=== PATIENT | female | born 1950 | race African-American/Black ===

== ENCOUNTER 2016-09-06 21:07 | Emergency (ER) | payer MEDICARE, OTHER ==
[2016-09-06 21:25] VITALS: BP 194/100
--- NOTE | 2016-09-07 09:34 | XRay Report ---
Unilateral left ribs: History: Rib pain after fall. Findings: Generalized demineralization. There is fracture of left fifth and sixth rib posteriorly. Old fracture of the left seventh rib. Multiple old fractures right ribs. Impression: Acute fracture left fifth and sixth rib.
--- NOTE | 2016-09-09 19:34 | ED Elopement Review ---
ED Pt Elopement review - Call Back decision Pt Call Back Decision: Call pt to return to ED [facility] (acute left sided rib fractures)
== END 2016-09-06 23:10 | disposition left against medical advice (07) ==
LOC: ED 21:07
DX: R07.81 Pleurodynia (principal); Z53.21 Procedure and treatment not carried out due to patient leaving prior to being seen by health care provider

== ENCOUNTER 2017-11-14 17:38 | Inpatient (IN) | payer MEDICARE, OTHER ==
[2017-11-14 18:46] LABS: Bilirubin,Urine NEG (Negative); Blood,Urine NEG (Negative); Mucus,Urine FEW /HPF; Protein,Urine <15 mg/dL mg/dL (Negative)
[2017-11-14 18:51] LABS: Color,Urine Amber (Yellow)
[2017-11-14 18:53] LABS: Basophils # (Auto) 0.1 K/mm3 (0.0-0.1); Basophils % (Auto) 1.1 % (0.0-1.8); Eosinophils # (Auto) 0.1 K/mm3 (0.0-0.4); Eosinophils % (Auto) 2.3 % (0.0-4.3); Hematocrit 40.4 % (30.3-42.9); Hemoglobin 13.1 gm/dl (10.1-14.3); Lymphocytes # (Auto) 2.7 K/mm3 (1.2-5.4); Lymphocytes % (Auto) 42.8 % (13.4-35.0); Mean Corpuscular HGB Conc 32 % (30-34); Mean Corpuscular Hemoglobin 31 pg (28-32); Mean Corpuscular Volume 96 fl (79-97); Monocytes # (Auto) 0.5 K/mm3 (0.0-0.8); Monocytes % (Auto) 7.9 % (0.0-7.3); Platelet Count 369 K/mm3 (140-440); Red Blood Count 4.22 M/mm3 (3.65-5.03); Red Cell Distribution Width 14.2 % (13.2-15.2)
[2017-11-14 19:12] LABS: Alanine Aminotransferase 6 units/L (7-56); Albumin 4.7 g/dL (3.9-5); BUN/Creatinine Ratio 41; Blood Urea Nitrogen 29 mg/dL (7-17); Calcium 8.8 mg/dL (8.4-10.2); Hemolysis Index 20
--- NOTE | 2017-11-14 22:38 | Emergency Department Report ---
ED Abdominal Pain HPI - General Chief Complaint: Abdominal Pain Stated Complaint: LOW BACK PAIN Time Seen by Provider: 11/14/17 22:38 Source: patient, family Mode of arrival: Ambulatory Limitations: No Limitations - History of Present Illness MD Complaint: abdominal pain, flank pain -: Sudden, Last night Location: L flank Radiation: none Migration to: no migration Severity: moderate Severity scale (0 -10): 6 Quality: sharp Consistency: constant Improves With: nothing Worsens With: nothing Associated Symptoms: denies other symptoms - Related Data Home Medications Medication Instructions Recorded Confirmed Last Taken Carbidopa/Levodopa/Entacapone 1 mg PO TID 08/10/14 08/10/14 Unknown [Stalevo 50 Tablet] Escitalopram Oxalate [Lexapro] 20 mg PO DAILY 08/10/14 08/10/14 Unknown HYDROcodone/APAP 10-325 [[place] 1 tab PO BID 08/10/14 08/10/14 Unknown 10-325 mg TAB] Quetiapine Fumarate [SEROquel XR] 50 mg PO DAILY 08/10/14 08/10/14 Unknown Rasagiline Mesylate [Azilect] 1 mg PO DAILY 08/10/14 08/10/14 Unknown Tizanidine HCl [Zanaflex] 4 mg PO DAILY 08/10/14 08/10/14 Unknown Zonisamide (Nf) [Zonegran (Nf)] 100 mg PO BID 08/10/14 08/10/14 Unknown clonazePAM [KlonoPIN] 1 mg PO BID 08/10/14 08/10/14 Unknown Previous Rx's Medication Instructions Recorded Last Taken Type Losartan [Cozaar] 100 mg PO QDAY #30 tablet 08/11/14 Unknown Rx Allergies Allergy/AdvReac Type Severity Reaction Status Date / Time Penicillins AdvReac Intermediate Swelling Verified 12/15/13 12:35 ED Review of Systems ROS: Stated complaint: LOW BACK PAIN Other details as noted in HPI Comment: All other systems reviewed and negative Constitutional: denies: chills, fever Eyes: denies: vision change ENT: denies: ear pain Respiratory: denies: cough, orthopnea, shortness of breath Cardiovascular: denies: chest pain, palpitations, dyspnea on exertion Endocrine: no symptoms reported Gastrointestinal: abdominal pain. denies: nausea, vomiting, diarrhea Genitourinary: denies: urgency, dysuria, frequency Musculoskeletal: denies: back pain, joint swelling Skin: denies: rash, lesions, change in color Neurological: denies: headache, numbness, paresthesias Psychiatric: denies: anxiety Hematological/Lymphatic: denies: easy bleeding, easy bruising ED Past Medical Hx - Past Medical History Hx Hypertension: Yes Hx Renal Disease: (kidney stones) Hx Arthritis: Yes Hx Kidney Stones: Yes Hx Psychiatric Treatment: Yes (Bipolar and Anxiety) Hx Asthma: Yes Additional medical history: hx kidney stones, parkinsons disease. - Surgical History Additional Surgical History: knee surgery - Social History Smoking Status: Never Smoker Substance Use Type: None - Medications Home Medications: Home Medications Medication Instructions Recorded Confirmed Last Taken Type Carbidopa/Levodopa/Entacapone 1 mg PO TID 08/10/14 08/10/14 Unknown History [Stalevo 50 Tablet] Escitalopram Oxalate [Lexapro] 20 mg PO DAILY 08/10/14 08/10/14 Unknown History HYDROcodone/APAP 10-325 [[place] 1 tab PO BID 08/10/14 08/10/14 Unknown History 10-325 mg TAB] Quetiapine Fumarate [SEROquel XR] 50 mg PO DAILY 08/10/14 08/10/14 Unknown History Rasagiline Mesylate [Azilect] 1 mg PO DAILY 08/10/14 08/10/14 Unknown History Tizanidine HCl [Zanaflex] 4 mg PO DAILY 08/10/14 08/10/14 Unknown History Zonisamide (Nf) [Zonegran (Nf)] 100 mg PO BID 08/10/14 08/10/14 Unknown History clonazePAM [KlonoPIN] 1 mg PO BID 08/10/14 08/10/14 Unknown History Losartan [Cozaar] 100 mg PO QDAY #30 tablet 08/11/14 Unknown Rx ED Physical Exam - General Limitations: No Limitations General appearance: alert, in distress - Head Head exam: Present: atraumatic, normocephalic, normal inspection - Eye Eye exam: Present: normal appearance, PERRL, EOMI Pupils: Present: normal accommodation - ENT ENT exam: Present: normal exam, normal orophraynx, mucous membranes moist - Neck Neck exam: Present: normal inspection, full ROM. Absent: tenderness - Respiratory Respiratory exam: Present: normal lung sounds bilaterally. Absent: wheezes, rhonchi - Cardiovascular Cardiovascular Exam: Present: regular rate, normal rhythm, normal heart sounds - GI/Abdominal GI/Abdominal exam: Present: soft, tenderness, guarding, normal bowel sounds. Absent: distended, rebound, mass - Extremities Exam Extremities exam: Present: normal inspection, full ROM, normal capillary refill. Absent: tenderness - Back Exam Back exam: Present: normal inspection, full ROM. Absent: tenderness, vertebral tenderness - Neurological Exam Neurological exam: Present: alert, oriented X3, CN II-XII intact - Psychiatric Psychiatric exam: Present: normal affect, normal mood, flat affect - Skin Skin exam: Present: warm, dry, intact, normal color. Absent: rash ED Course Vital Signs 11/14/17 17:52 Temperature 97.8 F Pulse Rate 88 Respiratory 16 Rate Blood Pressure 123/70 O2 Sat by Pulse 98 Oximetry - Reevaluation(s) Reevaluation #1: 11/15/17 05:15 I discussed medicine care with hospitalist slot key person Dr Beba Verma. She'll admit the patient to the hospital for further evaluation and management. ED Medical Decision Making - Lab Data Result diagrams: 11/14/17 18:21 11/14/17 18:21 - Radiology Data Radiology results: report reviewed, image reviewed - Medical Decision Making Abdominal pain. Critical care attestation.: If time is entered above; I have spent that time in minutes in the direct care of this critically ill patient, excluding procedure time. ED Disposition Clinical Impression: Intraabdominal mass Abdominal pain Qualifiers: Abdominal location: left upper quadrant Qualified Code(s): R10.12 - Left upper quadrant pain Disposition: -09 OP ADMIT IP TO THIS HOSP Is pt being admited?: Yes Does the pt Need Aspirin: No Condition: Stable Instructions: Abdominal Pain (ED) Referrals: PRIMARY CARE, [Primary Care Provider] - 3-5 Days Time of Disposition: 05:15
[2017-11-14] MEDS ORDERED: PERCOCET 5/325 PO ONE (22:53)
[2017-11-15 00:14] LABS: INR 0.89 (0.87-1.13)
[2017-11-15 00:15] LABS: Partial Thromboplastin Time 31.7 Sec. (24.2-36.6)
--- NOTE | 2017-11-15 08:28 | History and Physical Report ---
History of Present Illness Date of examination: 11/15/17 Date of admission: 11/15/17 07:00 Chief complaint: Left flank pain History of present illness: This is a 67 y/o female with h/o recurrent kidney stone, parkinson disease, HTN, bipolar disorder presented with 2-3 days onset of left lumber pain which has been progressively getting worse. Patient stats that it felt like similar pattern of having kidney stone. Pain located on the LUQ ad radiate through the groin area. Pain ea initially intermittent then became persistent along with nausea and vomitting. In the ER CT abdomen/pelvis showed possible LUQ mass likely from stomach or adrenal gland. Patient being admitted for further evaluation and management. She denies any recent Wt loss, lack of appetite. Past medical History: h/o ecurrent kidney stone, parkinson disease, HTN, bipolardisorde Past surgical History: s/p kidney stone removal, knee surgery Social History: Lives with family, denies any smoking, drinking and elicit drug abuse. Family History: NO Significant h/o malignancy Review of System: Constitutional: no fever, no chills, no weight loss Ears, eyes, nose, mouth and throat: no nasal congestion, no nasal discharge, no sinus pressure, no vision change, no red eye. Neck: No neck pain or rigidity. Cardiovascular: No chest pain, no orthopnea, no palpitations, no leg swelling Respiratory: No shortness of breath, no cough, no congestion, no wheezing Gastrointestinal: + abdominal pain, + nausea, + vomiting Genitourinary : no dysuria, no hematuria Musculoskeletal: no joint swelling or muscle ache Integumentary: no rash, no pruritis Neurological: no parathesias, no numbness, no tingling Endocrine: no cold or heat intolerance, no polyuria or polydipsia Hematologic/Lymphatic: no easy bruising, no easy bleeding, no gland swelling Allergic/Immunologic: no urticaria, no angioedema. Medications and Allergies Allergies Allergy/AdvReac Type Severity Reaction Status Date / Time Penicillins AdvReac Intermediate Swelling Verified 12/15/13 12:35 Home Medications Medication Instructions Recorded Confirmed Last Taken Type Escitalopram Oxalate [Lexapro] 20 mg PO DAILY 08/10/14 11/15/17 11/14/17 08:00 History HYDROcodone/APAP 10-325 [[place] 1 tab PO BID 08/10/14 11/15/1718 08:00 History 10-325 mg TAB] Quetiapine Fumarate [SEROquel XR] 150 mg PO HS 08/10/14 11/15/17 11/13/17 21:00 History Zonisamide (Nf) [Zonegran (Nf)] 100 mg PO BID 08/10/14 11/15/17 11/14/17 08:00 History clonazePAM [KlonoPIN] 0.5 mg PO BID 08/10/14 11/15/17 11/14/17 08:00 History Sfepyyzsp-Iszskobl-Xlnk 50 mg 50 mg PO QID 11/15/17 11/15/17 11/14/17 08:00 History Exam - Physical Exam Narrative exam: GENERAL: well-developed elderly female lying on bed appeared to be in no discomfort. HEENT: Normocephalic. Atraumatic. No conjunctival congestion or icterus. Patient has moist mucous membranes. NECK: Supple. Trachea midline. CHEST/LUNGS: Clear to auscultated bilaterally, breathing nonlabored. No wheezes crackles or rhonchi. HEART/CARDIOVASCULAR: Regular in rate and rhythm. S1 and S2 positive. ABDOMEN: Abdomen is soft, left sided mild tenderness. Patient has normal bowel sounds. SKIN: There is no rash. Warm and dry. NEURO: No focal motor deficit. Follows command. MUSCULOSKELETAL: No joint effusion or tenderness. EXTRIMITY: No edema, no cyanosis or clubbing. PSYCH: Cooperative. - Constitutional Vitals: Temp Pulse Resp BP Pulse Ox 98.1 F 79 16 149/99 96 11/15/17 06:45 11/15/17 06:45 11/15/17 06:45 11/15/17 06:45 11/15/17 06:45 Results - Labs CBC & Chem 7: 11/14/17 18:21 11/14/17 18:21 Labs: Abnormal lab results 11/14/17 11/14/17 Range/Units 18:21 18:21 Lymph % (Auto) 42.8 H (13.4-35.0) % [place] % (Auto) 7.9 H (0.0-7.3) % BUN 29 H (7-17) mg/dL ALT 6 L (7-56) units/L - Imaging and Cardiology CT scan - abdomen: report reviewed Assessment and Plan Left upper quadrant intra-abdominal mass Left flank pain, likely due to LUQ mass Parkinson disease Bipolar disorder/Anxiety HTN, benign - Admit to medsurge unit - will obtain MRI abdomen/pelvis to better locate the intraabdominal mass - gentle hydration with iv fluid - resume outpt medication for Parkinson disease and bipolar disorder - cont losartan for HTN - Supportive care with iv morphin and zofran for as needed pain and nausea - cardiac diet as tolerated - DVT Px with lovenox
[2017-11-15] MEDS ORDERED: NARCAN 0.4 MG/1 ML IV PRN (08:29)
[2017-11-15] MEDS ORDERED: ZOFRAN IV PRN (08:29)
[2017-11-15] MEDS ORDERED: TYLENOL PO PRN (08:29)
[2017-11-15] MEDS ORDERED: MORPHINE IV PRN (08:29)
[2017-11-15] MEDS ORDERED: SODIUM CHLORIDE FLUSH SYRINGE 10 ML IV PRN (08:29)
[2017-11-15] MEDS ORDERED: NACL 0.9% 1000 ML 1,000 ML IV SCH (09:00)
[2017-11-15] MEDS ORDERED: NON-FORMULARY (Quetiapine Fumarate [Seroquel Xr] 50 MG) PO SCH ×2 (10:00→22:00)
[2017-11-15] MEDS ORDERED: NON-FORMULARY (Escitalopram Oxalate [Lexapro] 20 MG) PO SCH (10:00)
[2017-11-15] MEDS ORDERED: NON-FORMULARY (Clonazepam [Klonopin] 1 MG) PO SCH (10:00)
[2017-11-15] MEDS: LEXAPRO PO SCH (11:57)
[2017-11-15] MEDS: PEPCID PO SCH ×2 (11:58→22:14)
[2017-11-15] MEDS: COZAAR PO SCH (11:58)
[2017-11-15] MEDS: LOVENOX SUB-Q SCH (11:59)
[2017-11-15] MEDS: COLACE PO SCH ×2 (11:59→22:14)
[2017-11-15] MEDS: SODIUM CHLORIDE FLUSH SYRINGE 10 ML IV SCH ×2 (12:00→22:16)
[2017-11-15] MEDS ORDERED: ENTACAPONE PO SCH (14:00)
[2017-11-15] MEDS ORDERED: CARBIDOPA PO SCH (14:00)
[2017-11-15] MEDS ORDERED: LEVODOPA PO SCH (14:00)
[2017-11-15] MEDS ORDERED: NON-FORMULARY PO SCH (18:00)
[2017-11-15] MEDS: NON-FORMULARY PO SCH (21:02)
[2017-11-15] MEDS ORDERED: NON-FORMULARY (Quetiapine Fumarate [Seroquel Xr] 150 MG) PO SCH (22:00)
[2017-11-16] MEDS: NON-FORMULARY PO SCH ×4 (07:49→22:15)
[2017-11-16] MEDS ORDERED: ATIVAN IV NR (08:30)
[2017-11-16] MEDS: COLACE PO SCH ×2 (09:27→23:03)
[2017-11-16] MEDS: PEPCID PO SCH ×2 (09:27→23:03)
[2017-11-16] MEDS: LOVENOX SUB-Q SCH (09:28)
[2017-11-16] MEDS: LEXAPRO PO SCH (09:28)
[2017-11-16] MEDS: COZAAR PO SCH (09:28)
[2017-11-16] MEDS: SODIUM CHLORIDE FLUSH SYRINGE 10 ML IV SCH ×2 (09:29→23:05)
[2017-11-16] MEDS ORDERED: PNEUMOVAX 23 IM ONE (12:00)
[2017-11-16] MEDS ORDERED: CARBIDOPA LEVODOPA ENTA PO SCH (18:00)
--- NOTE | 2017-11-16 18:36 | Progress Note ---
Assessment and Plan Left upper quadrant intra-abdominal mass Left flank pain, likely due to LUQ mass Parkinson disease Bipolar disorder/Anxiety HTN, benign - cont to monitor at medsurge unit - pending MRI abdomen/pelvis to better locate the intraabdominal mass - cont gentle hydration with iv fluid - resumed outpt medication for Parkinson disease and bipolar disorder - cont losartan for HTN - Supportive care with iv morphin and zofran for as needed pain and nausea - cardiac diet as tolerated - DVT Px with lovenox Subjective Date of service: 11/16/17 Interval history: Pt seen and examined [employer] acute issue, updated at bedside Plan to have MRI today Objective - Exam Narrative Exam: GENERAL: well-developed elderly female lying on bed appeared to be in no discomfort. HEENT: Normocephalic. Atraumatic. No conjunctival congestion or icterus. Patient has moist mucous membranes. NECK: Supple. Trachea midline. CHEST/LUNGS: Clear to auscultated bilaterally, breathing nonlabored. No wheezes crackles or rhonchi. HEART/CARDIOVASCULAR: Regular in rate and rhythm. S1 and S2 positive. ABDOMEN: Abdomen is soft, left sided mild tenderness. Patient has normal bowel sounds. SKIN: There is no rash. Warm and dry. NEURO: No focal motor deficit. Follows command. MUSCULOSKELETAL: No joint effusion or tenderness. EXTRIMITY: No edema, no cyanosis or clubbing. PSYCH: Cooperative. - Constitutional Vitals: Vital Signs - 12hr 11/16/17 11/16/17 11/16/17 08:03 09:28 10:00 Temperature 98.5 F Pulse Rate 72 74 Pulse Rate [ 74 Right] Respiratory 20 16 Rate Blood Pressure 146/90 150/95 O2 Sat by Pulse 99 98 Oximetry 11/16/17 12:49 Temperature 97.8 F Pulse Rate 81 Pulse Rate [ Right] Respiratory 20 Rate Blood Pressure 152/82 O2 Sat by Pulse 99 Oximetry - Labs CBC & Chem 7: 11/14/17 18:21 11/14/17 18:21
[2017-11-16] MEDS ORDERED: ZONISAMIDE 100 MG PO SCH (22:00)
[2017-11-17] MEDS: NON-FORMULARY PO SCH ×5 (00:15→21:38)
--- NOTE | 2017-11-17 07:53 | Progress Note ---
Assessment and Plan Assessment and plan: --Left upper quadrant intra-abdominal mass Continue supportive care, following MRI abdomen Consider surgical consult if needed --Left flank pain, likely due to LUQ mass Supportive care, pain medications, follow MRI report --Parkinson disease; Continue current medications and management --Bipolar disorder/Anxiety Intercurrent psych medications --Hypertension; moderate control, continue current antihypertensives When necessary medications --DVT prophylaxis; with Lovenox Monitor the patient and adjust management as needed Plan of care reviewed with the patient's at the bedside As well as her nurse History Interval history: Patient seen and examined medical records reviewed No new events reported by the nursing Patient had an MRI abdomen done, pending report No new complaints Vital signs reviewed Hospitalist Physical - Constitutional Vitals: Temp Pulse Resp BP Pulse Ox 98.4 F 83 18 128/82 97 11/17/17 02:23 11/17/17 02:23 11/17/17 02:23 11/17/17 02:23 11/17/17 02:23 General appearance: Present: no acute distress, well-nourished - EENT Eyes: Present: PERRL, EOM intact - Neck Neck: Present: supple, normal ROM - Respiratory Respiratory effort: normal Respiratory: bilateral: diminished, negative: rales, rhonchi, wheezing - Cardiovascular Rhythm: regular Heart Sounds: Present: S1 & S2 - Extremities Extremities: no ischemia, No edema - Abdominal General gastrointestinal: soft, non-tender, non-distended, normal bowel sounds - Integumentary Integumentary: Present: clear, warm - Psychiatric Psychiatric: appropriate mood/affect, cooperative - Neurologic Neurologic: CNII-XII intact, moves all extremities Results - Labs CBC & Chem 7: 11/14/17 18:21 11/14/17 18:21 Labs: Laboratory Last Values WBC 6.2 K/mm3 (4.5-11.0) 11/14/17 18:21 RBC 4.22 M/mm3 (3.65-5.03) 11/14/17 18:21 Hgb 13.1 gm/dl (10.1-14.3) 11/14/17 18:21 Hct 40.4 % (30.3-42.9) 11/14/17 18:21 MCV 96 fl (79-97) 11/14/17 18:21 MCH 31 pg (28-32) 11/14/17 18:21 MCHC 32 % (30-34) 11/14/17 18:21 RDW 14.2 % (13.2-15.2) 11/14/17 18:21 Plt Count 369 K/mm3 (140-440) 11/14/17 18:21 Lymph % (Auto) 42.8 % (13.4-35.0) H 11/14/17 18:21 [place] % (Auto) 7.9 % (0.0-7.3) H 11/14/17 18:21 Eos % (Auto) 2.3 % (0.0-4.3) 11/14/17 18:21 Baso % (Auto) 1.1 % (0.0-1.8) 11/14/17 18:21 Lymph # 2.7 K/mm3 (1.2-5.4) 11/14/17 18:21 [place] # 0.5 K/mm3 (0.0-0.8) 11/14/17 18:21 Eos # 0.1 K/mm3 (0.0-0.4) 11/14/17 18:21 Baso # 0.1 K/mm3 (0.0-0.1) 11/14/17 18:21 Seg Neutrophils % 45.9 % (40.0-70.0) 11/14/17 18:21 Seg Neutrophils # 2.9 K/mm3 (1.8-7.7) 11/14/17 18:21 PT 12.5 Sec. (12.2-14.9) 11/14/17 23:49 INR 0.89 (0.87-1.13) 11/14/17 23:49 APTT 31.7 Sec. (24.2-36.6) 11/14/17 23:49 Sodium 141 mmol/L (137-145) 11/14/17 18:21 Potassium 4.3 mmol/L (3.6-5.0) 11/14/17 18:21 Chloride 104.0 mmol/L (98-107) 11/14/17 18:21 Carbon Dioxide 22 mmol/L (22-30) 11/14/17 18:21 Anion Gap 19 mmol/L 11/14/17 18:21 BUN 29 mg/dL (7-17) H 11/14/17 18:21 Creatinine 0.7 mg/dL (0.7-1.2) 11/14/17 18:21 Estimated GFR > 60 ml/min 11/14/17 18:21 BUN/Creatinine Ratio 41 % 11/14/17 18:21 Glucose 94 mg/dL (65-100) 11/14/17 18:21 Calcium 8.8 mg/dL (8.4-10.2) 11/14/17 18:21 Total Bilirubin 0.20 mg/dL (0.1-1.2) 11/14/17 18:21 AST 14 units/L (5-40) 11/14/17 18:21 ALT 6 units/L (7-56) L 11/14/17 18:21 Alkaline Phosphatase 111 units/L (35-129) 11/14/17 18:21 Total Protein 7.3 g/dL (6.3-8.2) 11/14/17 18:21 Albumin 4.7 g/dL (3.9-5) 11/14/17 18:21 Albumin/Globulin Ratio 1.8 % 11/14/17 18:21 Lipase 46 units/L (13-60) 11/14/17 23:49 Urine Color Jewels (Yellow) 11/14/17 18:24 Urine Turbidity Clear (Clear) 11/14/17 18:24 Urine pH 6.0 (5.0-7.0) 11/14/17 18:24 Ur Specific [place] 1.025 (1.003-1.030) 11/14/17 18:24 Urine Protein <15 mg/dl mg/dL (Negative) 11/14/17 18:24 Urine Glucose (UA) Neg mg/dL (Negative) 11/14/17 18:24 Urine Ketones Neg mg/dL (Negative) 11/14/17 18:24 Urine Blood Neg (Negative) 11/14/17 18:24 Urine Nitrite Neg (Negative) 11/14/17 18:24 Urine Bilirubin Neg (Negative) 11/14/17 18:24 Urine Urobilinogen 2.0 mg/dL (<2.0) 11/14/17 18:24 Ur Leukocyte Esterase Lg (Negative) 11/14/17 18:24 Urine WBC (Auto) 6.0 /HPF (0.0-6.0) 11/14/17 18:24 Urine RBC (Auto) 6.0 /HPF (0.0-6.0) 11/14/17 18:24 U Epithel Cells (Auto) 2.0 /HPF (0-13.0) 11/14/17 18:24 Urine Mucus Few /HPF 11/14/17 18:24
[2017-11-17] MEDS: LEXAPRO PO SCH (10:13)
[2017-11-17] MEDS: PEPCID PO SCH ×2 (10:13→21:36)
[2017-11-17] MEDS: COLACE PO SCH ×2 (10:14→21:37)
[2017-11-17] MEDS: COZAAR PO SCH (10:14)
[2017-11-17] MEDS: PERCOCET 5/325 PO PRN ×2 (10:14→15:44)
[2017-11-17] MEDS: LOVENOX SUB-Q SCH (10:15)
[2017-11-17] MEDS: SODIUM CHLORIDE FLUSH SYRINGE 10 ML IV SCH ×2 (10:20→21:39)
[2017-11-18] MEDS: PERCOCET 5/325 PO PRN ×2 (04:00→21:57)
[2017-11-18] MEDS: NON-FORMULARY PO SCH ×4 (08:09→21:58)
[2017-11-18] MEDS: LOVENOX SUB-Q SCH (10:09)
[2017-11-18] MEDS: SODIUM CHLORIDE FLUSH SYRINGE 10 ML IV SCH ×2 (10:10→21:57)
[2017-11-18] MEDS: PEPCID PO SCH ×2 (10:10→21:58)
[2017-11-18] MEDS: LEXAPRO PO SCH (10:10)
[2017-11-18] MEDS: COLACE PO SCH ×2 (10:10→21:58)
[2017-11-18] MEDS: COZAAR PO SCH (10:12)
--- NOTE | 2017-11-18 13:00 | Progress Note ---
Assessment and Plan Assessment and plan: --Left upper quadrant intra-abdominal mass MRI abdomen. Report pending Supportive care --Left flank pain, likely due to LUQ mass Supportive care, pain medications, follow MRI report --Parkinson disease; Continue current medications and management --Bipolar disorder/Anxiety Continue current psych medications --Hypertension; moderate control, continue current antihypertensives When necessary medications --DVT prophylaxis; with Lovenox --DC planning per case management Possible discharge in 1-2 days if stable History Interval history: Patient seen and examined medical records reviewed No new events reported by nursing staff She underwent a MRI abdomen for possible mass Pending report Patient is not in acute distress vital signs reviewed Hospitalist Physical - Constitutional Vitals: Temp Pulse Resp BP Pulse Ox 97.9 F 84 16 125/67 99 11/18/17 07:24 11/18/17 10:12 11/18/17 07:24 11/18/17 10:12 11/18/17 07:24 General appearance: Present: no acute distress, well-nourished - EENT Eyes: Present: PERRL, EOM intact - Neck Neck: Present: supple, normal ROM - Respiratory Respiratory effort: normal Respiratory: bilateral: diminished, negative: rales, rhonchi, wheezing - Cardiovascular Rhythm: regular Heart Sounds: Present: S1 & S2 - Extremities Extremities: no ischemia, No edema - Abdominal General gastrointestinal: soft, non-tender, non-distended, normal bowel sounds - Integumentary Integumentary: Present: clear, warm - Psychiatric Psychiatric: appropriate mood/affect, cooperative - Neurologic Neurologic: moves all extremities Results - Labs CBC & Chem 7: 11/14/17 18:21 11/14/17 18:21 Labs: Laboratory Last Values WBC 6.2 K/mm3 (4.5-11.0) 11/14/17 18:21 RBC 4.22 M/mm3 (3.65-5.03) 11/14/17 18:21 Hgb 13.1 gm/dl (10.1-14.3) 11/14/17 18:21 Hct 40.4 % (30.3-42.9) 11/14/17 18:21 MCV 96 fl (79-97) 11/14/17 18:21 MCH 31 pg (28-32) 11/14/17 18:21 MCHC 32 % (30-34) 11/14/17 18:21 RDW 14.2 % (13.2-15.2) 11/14/17 18:21 Plt Count 369 K/mm3 (140-440) 11/14/17 18:21 Lymph % (Auto) 42.8 % (13.4-35.0) H 11/14/17 18:21 [place] % (Auto) 7.9 % (0.0-7.3) H 11/14/17 18:21 Eos % (Auto) 2.3 % (0.0-4.3) 11/14/17 18:21 Baso % (Auto) 1.1 % (0.0-1.8) 11/14/17 18:21 Lymph # 2.7 K/mm3 (1.2-5.4) 11/14/17 18:21 [place] # 0.5 K/mm3 (0.0-0.8) 11/14/17 18:21 Eos # 0.1 K/mm3 (0.0-0.4) 11/14/17 18:21 Baso # 0.1 K/mm3 (0.0-0.1) 11/14/17 18:21 Seg Neutrophils % 45.9 % (40.0-70.0) 11/14/17 18:21 Seg Neutrophils # 2.9 K/mm3 (1.8-7.7) 11/14/17 18:21 PT 12.5 Sec. (12.2-14.9) 11/14/17 23:49 INR 0.89 (0.87-1.13) 11/14/17 23:49 APTT 31.7 Sec. (24.2-36.6) 11/14/17 23:49 Sodium 141 mmol/L (137-145) 11/14/17 18:21 Potassium 4.3 mmol/L (3.6-5.0) 11/14/17 18:21 Chloride 104.0 mmol/L (98-107) 11/14/17 18:21 Carbon Dioxide 22 mmol/L (22-30) 11/14/17 18:21 Anion Gap 19 mmol/L 11/14/17 18:21 BUN 29 mg/dL (7-17) H 11/14/17 18:21 Creatinine 0.7 mg/dL (0.7-1.2) 11/14/17 18:21 Estimated GFR > 60 ml/min 11/14/17 18:21 BUN/Creatinine Ratio 41 % 11/14/17 18:21 Glucose 94 mg/dL (65-100) 11/14/17 18:21 Calcium 8.8 mg/dL (8.4-10.2) 11/14/17 18:21 Total Bilirubin 0.20 mg/dL (0.1-1.2) 11/14/17 18:21 AST 14 units/L (5-40) 11/14/17 18:21 ALT 6 units/L (7-56) L 11/14/17 18:21 Alkaline Phosphatase 111 units/L (35-129) 11/14/17 18:21 Total Protein 7.3 g/dL (6.3-8.2) 11/14/17 18:21 Albumin 4.7 g/dL (3.9-5) 11/14/17 18:21 Albumin/Globulin Ratio 1.8 % 11/14/17 18:21 Lipase 46 units/L (13-60) 11/14/17 23:49 Urine Color [place] (Yellow) 11/14/17 18:24 Urine Turbidity Clear (Clear) 11/14/17 18:24 Urine pH 6.0 (5.0-7.0) 11/14/17 18:24 Ur Specific [place] 1.025 (1.003-1.030) 11/14/17 18:24 Urine Protein <15 mg/dl mg/dL (Negative) 11/14/17 18:24 Urine Glucose (UA) Neg mg/dL (Negative) 11/14/17 18:24 Urine Ketones Neg mg/dL (Negative) 11/14/17 18:24 Urine Blood Neg (Negative) 11/14/17 18:24 Urine Nitrite Neg (Negative) 11/14/17 18:24 Urine Bilirubin Neg (Negative) 11/14/17 18:24 Urine Urobilinogen 2.0 mg/dL (<2.0) 11/14/17 18:24 Ur Leukocyte Esterase Lg (Negative) 11/14/17 18:24 Urine WBC (Auto) 6.0 /HPF (0.0-6.0) 11/14/17 18:24 Urine RBC (Auto) 6.0 /HPF (0.0-6.0) 11/14/17 18:24 U Epithel Cells (Auto) 2.0 /HPF (0-13.0) 11/14/17 18:24 Urine Mucus Few /HPF 11/14/17 18:24
[2017-11-19] MEDS: PERCOCET 5/325 PO PRN ×2 (04:44→12:09)
--- NOTE | 2017-11-19 07:57 | Progress Note ---
Assessment and Plan Assessment and plan: --Left upper quadrant intra-abdominal mass MRI abdomen. Discussed with radiologist Dr. 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 Request GI consult --Left flank pain, likely due to gastrointestinal stromal tumor Supportive care, pain medications, follow MRI report --Parkinson disease; Continue current medications and management --Bipolar disorder/Anxiety Continue current psych medications --Hypertension; moderate control, continue current antihypertensives When necessary medications --DVT prophylaxis; with Lovenox --DC planning per case management Follow GI evaluation and recommendations Possible discharge in 1-2 days if stable History Interval history: Patient seen and examined medical records reviewed Patient complains of mild abdominal pain MRI of the abdomen findings consistent with small gastrointestinal stromal tumor We will consult GI for further evaluation and management Patient alert and awake not in acute distress Vital signs reviewed Hospitalist Physical - Constitutional Vitals: Temp Pulse Resp BP Pulse Ox 98.7 F 84 18 134/70 94 11/19/17 02:04 11/18/17 19:41 11/19/17 02:04 11/19/17 02:04 11/18/17 19:41 General appearance: Present: no acute distress, well-nourished - EENT Eyes: Present: PERRL, EOM intact - Neck Neck: Present: supple, normal ROM - Respiratory Respiratory effort: normal Respiratory: bilateral: diminished, negative: rales, rhonchi, wheezing - Cardiovascular Rhythm: regular Heart Sounds: Present: S1 & S2 - Extremities Extremities: no ischemia, No edema - Abdominal General gastrointestinal: soft, non-tender, non-distended, normal bowel sounds - Integumentary Integumentary: Present: clear, warm - Psychiatric Psychiatric: appropriate mood/affect, cooperative - Neurologic Neurologic: CNII-XII intact, moves all extremities Results - Labs CBC & Chem 7: 11/14/17 18:21 11/14/17 18:21 Labs: Laboratory Last Values WBC 6.2 K/mm3 (4.5-11.0) 11/14/17 18:21 RBC 4.22 M/mm3 (3.65-5.03) 11/14/17 18:21 Hgb 13.1 gm/dl (10.1-14.3) 11/14/17 18:21 Hct 40.4 % (30.3-42.9) 11/14/17 18:21 MCV 96 fl (79-97) 11/14/17 18:21 MCH 31 pg (28-32) 11/14/17 18:21 MCHC 32 % (30-34) 11/14/17 18:21 RDW 14.2 % (13.2-15.2) 11/14/17 18:21 Plt Count 369 K/mm3 (140-440) 11/14/17 18:21 Lymph % (Auto) 42.8 % (13.4-35.0) H 11/14/17 18:21 [place] % (Auto) 7.9 % (0.0-7.3) H 11/14/17 18:21 Eos % (Auto) 2.3 % (0.0-4.3) 11/14/17 18:21 Baso % (Auto) 1.1 % (0.0-1.8) 11/14/17 18:21 Lymph # 2.7 K/mm3 (1.2-5.4) 11/14/17 18:21 [place] # 0.5 K/mm3 (0.0-0.8) 11/14/17 18:21 Eos # 0.1 K/mm3 (0.0-0.4) 11/14/17 18:21 Baso # 0.1 K/mm3 (0.0-0.1) 11/14/17 18:21 Seg Neutrophils % 45.9 % (40.0-70.0) 11/14/17 18:21 Seg Neutrophils # 2.9 K/mm3 (1.8-7.7) 11/14/17 18:21 PT 12.5 Sec. (12.2-14.9) 11/14/17 23:49 INR 0.89 (0.87-1.13) 11/14/17 23:49 APTT 31.7 Sec. (24.2-36.6) 11/14/17 23:49 Sodium 141 mmol/L (137-145) 11/14/17 18:21 Potassium 4.3 mmol/L (3.6-5.0) 11/14/17 18:21 Chloride 104.0 mmol/L (98-107) 11/14/17 18:21 Carbon Dioxide 22 mmol/L (22-30) 11/14/17 18:21 Anion Gap 19 mmol/L 11/14/17 18:21 BUN 29 mg/dL (7-17) H 11/14/17 18:21 Creatinine 0.7 mg/dL (0.7-1.2) 11/14/17 18:21 Estimated GFR > 60 ml/min 11/14/17 18:21 BUN/Creatinine Ratio 41 % 11/14/17 18:21 Glucose 94 mg/dL (65-100) 11/14/17 18:21 Calcium 8.8 mg/dL (8.4-10.2) 11/14/17 18:21 Total Bilirubin 0.20 mg/dL (0.1-1.2) 11/14/17 18:21 AST 14 units/L (5-40) 11/14/17 18:21 ALT 6 units/L (7-56) L 11/14/17 18:21 Alkaline Phosphatase 111 units/L (35-129) 11/14/17 18:21 Total Protein 7.3 g/dL (6.3-8.2) 11/14/17 18:21 Albumin 4.7 g/dL (3.9-5) 11/14/17 18:21 Albumin/Globulin Ratio 1.8 % 11/14/17 18:21 Lipase 46 units/L (13-60) 11/14/17 23:49 Urine Color Jewels (Yellow) 11/14/17 18:24 Urine Turbidity Clear (Clear) 11/14/17 18:24 Urine pH 6.0 (5.0-7.0) 11/14/17 18:24 Ur Specific [place] 1.025 (1.003-1.030) 11/14/17 18:24 Urine Protein <15 mg/dl mg/dL (Negative) 11/14/17 18:24 Urine Glucose (UA) Neg mg/dL (Negative) 11/14/17 18:24 Urine Ketones Neg mg/dL (Negative) 11/14/17 18:24 Urine Blood Neg (Negative) 11/14/17 18:24 Urine Nitrite Neg (Negative) 11/14/17 18:24 Urine Bilirubin Neg (Negative) 11/14/17 18:24 Urine Urobilinogen 2.0 mg/dL (<2.0) 11/14/17 18:24 Ur Leukocyte Esterase Lg (Negative) 11/14/17 18:24 Urine WBC (Auto) 6.0 /HPF (0.0-6.0) 11/14/17 18:24 Urine RBC (Auto) 6.0 /HPF (0.0-6.0) 11/14/17 18:24 U Epithel Cells (Auto) 2.0 /HPF (0-13.0) 11/14/17 18:24 Urine Mucus Few /HPF 11/14/17 18:24
[2017-11-19] MEDS: NON-FORMULARY PO SCH ×4 (08:54→21:50)
[2017-11-19] MEDS: LOVENOX SUB-Q SCH (09:24)
[2017-11-19] MEDS: COZAAR PO SCH (09:25)
[2017-11-19] MEDS: LEXAPRO PO SCH (09:25)
[2017-11-19] MEDS: COLACE PO SCH ×2 (09:26→21:49)
[2017-11-19] MEDS: PEPCID PO SCH ×2 (09:26→21:49)
--- NOTE | 2017-11-19 10:26 | Magnetic Resonance Report ---
MR ABDOMEN WITH AND WITHOUT CONTRAST HISTORY: Left upper quadrant mass. TECHNIQUE: Multisequence, multiplanar MRI before and after IV gadolinium. COMPARISON: CT abdomen pelvis with contrast dated 11/15/17. Noncontrast CT abdomen and pelvis dated 12/07/13 and 08/29/12. FINDINGS: MRI also demonstrates an approximate 2.3 cm well-defined soft tissue density mass with intimate association with the cardia of the stomach. This appears to represent an intramural lesion of the gastric cardia. In retrospect, there is suggestion of this mass on the noncontrast CT abdomen and pelvis dated 12/07/13. In 2013 this lesion measured approximately 1.7 cm. There is no evidence for internal calcifications or cavitation. This mass enhances similar to adjacent gastric mucosa on postcontrast dynamic imaging. Gastrointestinal stromal tumor is most likely. Leiomyoblastoma could also be considered. A splenule is thought less likely. A benign etiology is suspected. The remainder of the stomach and visualized intestines are within normal limits. There is no evidence for bowel obstruction or focal inflammation. The liver is normal size and contour. No suspicious mass. Mild fatty infiltration of the liver is suspected. There are a few small gallstones within the gallbladder. No biliary dilatation or inflammation. Normal pancreas, spleen, kidneys and adrenal glands. The aorta is normal caliber. No evidence for acute inflammation, adenopathy or ascites. IMPRESSION: 2.3 cm well-defined soft tissue density mass which appears to arise from the gastric cardia. I suspect this represents a small gastrointestinal stromal tumor. Other etiologies are not entirely excluded. Please note, in retrospect, I think I see this lesion on the noncontrast CT abdomen and pelvis dated 12/07/13 in which it measured slightly smaller at 1.7 cm. Consider consultation with gastroenterology.
[2017-11-19] MEDS: SODIUM CHLORIDE FLUSH SYRINGE 10 ML IV SCH ×2 (12:12→21:50)
--- NOTE | 2017-11-19 14:16 | Cat Scan Report ---
FINAL REPORT PROCEDURE: CT ABDOMEN PELVIS W CON TECHNIQUE: Computerized axial tomography of the abdomen and pelvis was performed after the IV injection of iodinated nonionic contrast. HISTORY: abdominal pain hx of kidney stones COMPARISON: No prior studies are available for comparison. FINDINGS: Visualized lower thorax: No significant abnormality. Liver: Liver is fatty but normal in size. There is heterogeneous enhancement of the left lobe of the liver without evidence of discrete mass. This could be related to focal fatty sparing.. Spleen: Normal size and attenuation. Gallbladder and biliary system: There is cholelithiasis. There is no cholecystitis or biliary ductal dilatation.. Pancreas: Normal. Adrenals: There is a soft tissue nodule in the left upper quadrant measuring 2.4 centimeters which could be an exophytic gastric mass versus adrenal adenoma.. Kidneys: There are no kidney stones or ureteral stones. There is no hydronephrosis.. GI tract: There is mucosal thickening of the stomach which is nonspecific. There is no bowel obstruction, colitis or enteritis. The appendix is normal.. Lymph nodes and mesentery: Normal. Vasculature: Normal. Bladder: Normal. Reproductive organs: There has been a hysterectomy.. Peritoneum: There is no ascites, free air, abscess or adenopathy.. Musculoskeletal structures: There is an old compression deformity of T12. IMPRESSION: Liver is fatty but normal in size. There is heterogeneous enhancement of the left lobe of the liver without evidence of discrete mass. This could be related to focal fatty sparing.. There is cholelithiasis. There is no cholecystitis or biliary ductal dilatation.. There is a soft tissue nodule in the left upper quadrant measuring 2.4 centimeters which could be an exophytic gastric mass versus adrenal adenoma.. There is mucosal thickening of the stomach which is nonspecific. There is no bowel obstruction, colitis or enteritis. The appendix is normal.. There has been a hysterectomy.. There is no ascites, free air, abscess or adenopathy.. There is an old compression deformity of T12.
[2017-11-19] MEDS ORDERED: ZONEGRAN (NF) PO SCH (22:00)
[2017-11-20] MEDS: PERCOCET 5/325 PO PRN ×2 (01:10→15:41)
[2017-11-20 07:02] LABS: Basophils # (Auto) 0.1 K/mm3 (0.0-0.1); Eosinophils # (Auto) 0.2 K/mm3 (0.0-0.4); Eosinophils % (Auto) 2.7 % (0.0-4.3); Hematocrit 38.6 % (30.3-42.9); Lymphocytes # (Auto) 2.5 K/mm3 (1.2-5.4); Lymphocytes % (Auto) 42.2 % (13.4-35.0); Mean Corpuscular HGB Conc 34 % (30-34); Mean Corpuscular Hemoglobin 32 pg (28-32); Mean Corpuscular Volume 95 fl (79-97); Monocytes # (Auto) 0.5 K/mm3 (0.0-0.8); Monocytes % (Auto) 8.4 % (0.0-7.3); Platelet Count 345 K/mm3 (140-440); Red Blood Count 4.05 M/mm3 (3.65-5.03); Red Cell Distribution Width 13.6 % (13.2-15.2)
[2017-11-20 07:19] LABS: BUN/Creatinine Ratio 22; Blood Urea Nitrogen 13 mg/dL (7-17); Calcium 8.8 mg/dL (8.4-10.2)
[2017-11-20 07:20] LABS: Hemolysis Index 12
--- NOTE | 2017-11-20 08:10 | Progress Note ---
Assessment and Plan Assessment and plan: --Left upper quadrant intra-abdominal mass MRI abdomen. Discussed with radiologist Dr. 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 GI evaluation pending --Left flank pain, likely due to gastrointestinal stromal tumor Supportive care, pain medications, follow GI eval --Parkinson disease; Continue current medications and management --Bipolar disorder/Anxiety Continue current psych medications --Hypertension; moderate control, continue current antihypertensives When necessary medications --DVT prophylaxis; with Lovenox --DC planning per case management Follow GI evaluation and recommendations Possible discharge in 1-2 days if stable Called spouse and discussed with him the findings of MRI abdomen, and plan of care, Answered all his questions 11/19/17 Plan of care reviewed with the patient's nurse History Interval history: Patient seen and examined in her room this morning medical records reviewed No new events reported by the nursing Patient feels better no new complaints MRI abdomen; gastrointestinal stromal tumor GI consulted Vital signs reviewed Hospitalist Physical - Constitutional Vitals: Temp Pulse Resp BP Pulse Ox 97.4 F L 81 20 149/73 99 11/20/17 07:31 11/20/17 07:31 11/20/17 07:31 11/20/17 07:31 11/20/17 07:31 General appearance: Present: no acute distress, well-nourished - EENT Eyes: Present: PERRL, EOM intact - Neck Neck: Present: supple, normal ROM - Respiratory Respiratory effort: normal Respiratory: negative: rales, rhonchi, wheezing - Cardiovascular Rhythm: regular Heart Sounds: Present: S1 & S2 - Extremities Extremities: no ischemia, No edema - Abdominal General gastrointestinal: soft, non-tender, non-distended, normal bowel sounds - Integumentary Integumentary: Present: clear, warm - Psychiatric Psychiatric: appropriate mood/affect, cooperative - Neurologic Neurologic: moves all extremities Results - Labs CBC & Chem 7: 11/20/17 06:18 11/20/17 06:18 Labs: Laboratory Last Values WBC 5.9 K/mm3 (4.5-11.0) 11/20/17 06:18 RBC 4.05 M/mm3 (3.65-5.03) 11/20/17 06:18 Hgb 13.0 gm/dl (10.1-14.3) 11/20/17 06:18 Hct 38.6 % (30.3-42.9) 11/20/17 06:18 MCV 95 fl (79-97) 11/20/17 06:18 MCH 32 pg (28-32) 11/20/17 06:18 MCHC 34 % (30-34) 11/20/17 06:18 RDW 13.6 % (13.2-15.2) 11/20/17 06:18 Plt Count 345 K/mm3 (140-440) 11/20/17 06:18 Lymph % (Auto) 42.2 % (13.4-35.0) H 11/20/17 06:18 [place] % (Auto) 8.4 % (0.0-7.3) H 11/20/17 06:18 Eos % (Auto) 2.7 % (0.0-4.3) 11/20/17 06:18 Baso % (Auto) 1.0 % (0.0-1.8) 11/20/17 06:18 Lymph # 2.5 K/mm3 (1.2-5.4) 11/20/17 06:18 [place] # 0.5 K/mm3 (0.0-0.8) 11/20/17 06:18 Eos # 0.2 K/mm3 (0.0-0.4) 11/20/17 06:18 Baso # 0.1 K/mm3 (0.0-0.1) 11/20/17 06:18 Seg Neutrophils % 45.7 % (40.0-70.0) 11/20/17 06:18 Seg Neutrophils # 2.7 K/mm3 (1.8-7.7) 11/20/17 06:18 PT 12.5 Sec. (12.2-14.9) 11/14/17 23:49 INR 0.89 (0.87-1.13) 11/14/17 23:49 APTT 31.7 Sec. (24.2-36.6) 11/14/17 23:49 Sodium 142 mmol/L (137-145) 11/20/17 06:18 Potassium 3.9 mmol/L (3.6-5.0) 11/20/17 06:18 Chloride 106.8 mmol/L (98-107) 11/20/17 06:18 Carbon Dioxide 23 mmol/L (22-30) 11/20/17 06:18 Anion Gap 16 mmol/L 11/20/17 06:18 BUN 13 mg/dL (7-17) 11/20/17 06:18 Creatinine 0.6 mg/dL (0.7-1.2) L 11/20/17 06:18 Estimated GFR > 60 ml/min 11/20/17 06:18 BUN/Creatinine Ratio 22 % 11/20/17 06:18 Glucose 85 mg/dL (65-100) 11/20/17 06:18 Calcium 8.8 mg/dL (8.4-10.2) 11/20/17 06:18 Total Bilirubin 0.20 mg/dL (0.1-1.2) 11/14/17 18:21 AST 14 units/L (5-40) 11/14/17 18:21 ALT 6 units/L (7-56) L 11/14/17 18:21 Alkaline Phosphatase 111 units/L (35-129) 11/14/17 18:21 Total Protein 7.3 g/dL (6.3-8.2) 11/14/17 18:21 Albumin 4.7 g/dL (3.9-5) 11/14/17 18:21 Albumin/Globulin Ratio 1.8 % 11/14/17 18:21 Lipase 46 units/L (13-60) 11/14/17 23:49 Urine Color Jewels (Yellow) 11/14/17 18:24 Urine Turbidity Clear (Clear) 11/14/17 18:24 Urine pH 6.0 (5.0-7.0) 11/14/17 18:24 Ur Specific [place] 1.025 (1.003-1.030) 11/14/17 18:24 Urine Protein <15 mg/dl mg/dL (Negative) 11/14/17 18:24 Urine Glucose (UA) Neg mg/dL (Negative) 11/14/17 18:24 Urine Ketones Neg mg/dL (Negative) 11/14/17 18:24 Urine Blood Neg (Negative) 11/14/17 18:24 Urine Nitrite Neg (Negative) 11/14/17 18:24 Urine Bilirubin Neg (Negative) 11/14/17 18:24 Urine Urobilinogen 2.0 mg/dL (<2.0) 11/14/17 18:24 Ur Leukocyte Esterase Lg (Negative) 11/14/17 18:24 Urine WBC (Auto) 6.0 /HPF (0.0-6.0) 11/14/17 18:24 Urine RBC (Auto) 6.0 /HPF (0.0-6.0) 11/14/17 18:24 U Epithel Cells (Auto) 2.0 /HPF (0-13.0) 11/14/17 18:24 Urine Mucus Few /HPF 11/14/17 18:24
[2017-11-20] MEDS: COZAAR PO SCH (09:31)
[2017-11-20] MEDS: LEXAPRO PO SCH (09:31)
[2017-11-20] MEDS: NON-FORMULARY PO SCH ×2 (09:32→14:21)
[2017-11-20] MEDS: PEPCID PO SCH (09:32)
[2017-11-20] MEDS: LOVENOX SUB-Q SCH (09:32)
[2017-11-20] MEDS: COLACE PO SCH (09:32)
[2017-11-20] MEDS: SODIUM CHLORIDE FLUSH SYRINGE 10 ML IV SCH (09:33)
--- NOTE | 2017-11-20 12:43 | Gastroenterology Consultation ---
<MERVIN BOOTH - Last Filed: 11/20/17 12:44> History of Present Illness - Reason for Consult Consult date: 11/20/17 Possible GIST Requesting physician: SAMANTHA LACKEY - History of Present Illness Ms. Randle is a 67 y/o female admitted with left back/ LUQ pain. Information is obtained mainly from chart review as the patient gives limited information. CT revealed a soft tissue mass with questionable exophytic gastric mass vs adrenal adenoma. MRI revealed a mass associated with the cardia of the stomach - ? GIST. She is unable to clarify the time frame for her LUQ pain but states she is fine now and she is eating a regular diet when entering the room. PMH significant for Renal stones, Parkinsons disease, HTN, bipolar disorder. Past History Past Medical History: hypertension, other (bipolar, Parkinsons, kidney stones. ) Past Surgical History: Other (knee surgery) Social history: no significant social history. denies: smoking, alcohol abuse Family history: no significant family history Medications and Allergies Allergies Allergy/AdvReac Type Severity Reaction Status Date / Time Penicillins AdvReac Intermediate Swelling Verified 12/15/13 12:35 Home Medications Medication Instructions Recorded Confirmed Last Taken Type Escitalopram Oxalate [Lexapro] 20 mg PO DAILY 08/10/14 11/15/17 11/14/17 08:00 History HYDROcodone/APAP 10-325 [[place] 1 tab PO BID 08/10/14 11/15/17 11/14/17 08:00 History 10-325 mg TAB] Quetiapine Fumarate [SEROquel XR] 150 mg PO HS 08/10/14 11/15/17 11/13/17 21:00 History clonazePAM [KlonoPIN] 0.5 mg PO BID 08/10/14 11/15/17 11/14/17 08:00 History Osdsqxgae-[id number]-[id number] 50 mg 50 mg PO QID 11/15/17 11/15/17 11/14/17 08:00 History Zonisamide (Nf) [Zonegran (Nf)] 200 mg PO HS 11/19/17 11/19/17 Unknown History Active Meds: Active Medications Acetaminophen (Tylenol) 650 mg PO Q4H PRN PRN Reason: Pain MILD(1-3)/Fever >100.5/AGUILAR Last Admin: 11/16/17 23:00 Dose: 650 mg Clonazepam (Klonopin) 0.5 mg PO BID [facility] Last Admin: 11/20/17 09:32 Dose: 0.5 mg Docusate Sodium (Colace) 100 mg PO BID [facility] Last Admin: 11/20/17 09:32 Dose: 100 mg Enoxaparin Sodium (Lovenox) 40 mg SUB-Q QDAY [facility] Last Admin: 11/20/17 09:32 Dose: 40 mg Escitalopram Oxalate (Lexapro) 20 mg PO DAILY [facility] Last Admin: 11/20/17 09:31 Dose: 20 mg Famotidine (Pepcid) 20 mg PO BID [facility] Last Admin: 11/20/17 09:32 Dose: 20 mg Sodium Chloride (Nacl 0.9% 1000 Ml) 1,000 mls @ 75 mls/hr IV DIRECT [facility] Losartan Potassium (Cozaar) 100 mg PO QDAY [facility] Last Admin: 11/20/17 09:31 Dose: 100 mg Miscellaneous Medication (Non-Formulary) 1 each PO HS [facility] Last Admin: 11/19/17 21:50 Dose: 1 each Miscellaneous Medication (Non-Formulary) 1 each PO TID [facility] Last Admin: 11/20/17 09:32 Dose: 1 each Morphine Sulfate (Morphine) 2 mg IV Q4H PRN PRN Reason: Pain, Moderate (4-6) Naloxone HCl (Narcan 0.4 Mg/1 Ml) 0.1 mg IV Q2MIN PRN PRN Reason: Res Rate </= 8 or 02 SAT < 92% Ondansetron HCl (Zofran) 4 mg IV Q8H PRN PRN Reason: Nausea And Vomiting Oxycodone/Acetaminophen (Percocet 5/325) 1 tab PO Q6H PRN PRN Reason: Pain, Moderate (4-6) Last Admin: 11/20/17 01:10 Dose: 1 tab Sodium Chloride (Sodium Chloride Flush Syringe 10 Ml) 10 ml IV BID [facility] Last Admin: 11/20/17 09:33 Dose: 10 ml Sodium Chloride (Sodium Chloride Flush Syringe 10 Ml) 10 ml IV PRN PRN PRN Reason: LINE FLUSH Zonisamide (Zonegran (Nf)) 200 mg PO QHS [facility] Last Admin: 11/19/17 21:50 Dose: 200 mg Review of Systems - Review of Systems All systems: negative Gastrointestinal: abdominal pain Exam - Constitutional Vital Signs: Temp Pulse Resp BP Pulse Ox 97.4 F L 81 20 149/73 99 11/20/17 07:31 11/20/17 09:31 11/20/17 07:31 11/20/17 09:31 11/20/17 07:31 General appearance: no acute distress, mild distress - EENT Eyes: EOM intact ENT: hearing intact - Neck Neck: supple - Respiratory Respiratory: bilateral: CTA - Cardiovascular Heart Sounds: Present: S1 & S2 - Gastrointestinal General gastrointestinal: Present: non-tender, distended, normal bowel sounds - Integumentary Integumentary: Present: clear, warm - Musculoskeletal Musculoskeletal: deferred - Neurologic Neurological: alert and oriented x3 - Psychiatric Psychiatric: appropriate mood/affect, cooperative - Labs CBC & Chem 7: 11/20/17 06:18 11/20/17 06:18 Lab Results: Laboratory Results - last 24 hr 11/20/17 11/20/17 06:18 06:18 WBC 5.9 RBC 4.05 Hgb 13.0 Hct 38.6 MCV 95 MCH 32 MCHC 34 RDW 13.6 Plt Count 345 Lymph % (Auto) 42.2 H [place] % (Auto) 8.4 H Eos % (Auto) 2.7 Baso % (Auto) 1.0 Lymph # 2.5 [place] # 0.5 Eos # 0.2 Baso # 0.1 Seg Neutrophils % 45.7 Seg Neutrophils # 2.7 Sodium 142 Potassium 3.9 Chloride 106.8 Carbon Dioxide 23 Anion Gap 16 BUN 13 Creatinine 0.6 L Estimated GFR > 60 BUN/Creatinine Ratio 22 Glucose 85 Calcium 8.8 Assessment and Plan 1. Abdominal Pain - Abnormal CT/MRI suggestive of possible GIST -Will likely need EGD, will discuss with regarding procedure as pt is wanting to go home. -Further recommendations to follow. <SEBLE REN - Last Filed: 11/20/17 15:30> Medications and Allergies Active Meds: Active Medications Acetaminophen (Tylenol) 650 mg PO Q4H PRN PRN Reason: Pain MILD(1-3)/Fever >100.5/AGUILRA Last Admin: 11/16/17 23:00 Dose: 650 mg Clonazepam (Klonopin) 0.5 mg PO BID [place] Last Admin: 11/20/17 09:32 Dose: 0.5 mg Docusate Sodium (Colace) 100 mg PO BID [facility] Last Admin: 11/20/17 09:32 Dose: 100 mg Enoxaparin Sodium (Lovenox) 40 mg SUB-Q QDAY [facility] Last Admin: 11/20/17 09:32 Dose: 40 mg Escitalopram Oxalate (Lexapro) 20 mg PO DAILY [facility] Last Admin: 11/20/17 09:31 Dose: 20 mg Famotidine (Pepcid) 20 mg PO BID [facility] Last Admin: 11/20/17 09:32 Dose: 20 mg Sodium Chloride (Nacl 0.9% 1000 Ml) 1,000 mls @ 75 mls/hr IV DIRECT [facility] Losartan Potassium (Cozaar) 100 mg PO QDAY [facility] Last Admin: 11/20/17 09:31 Dose: 100 mg Miscellaneous Medication (Non-Formulary) 1 each PO HS [facility] Last Admin: 11/19/17 21:50 Dose: 1 each Miscellaneous Medication (Non-Formulary) 1 each PO TID [facility] Last Admin: 11/20/17 14:21 Dose: 1 each Morphine Sulfate (Morphine) 2 mg IV Q4H PRN PRN Reason: Pain, Moderate (4-6) Naloxone HCl (Narcan 0.4 Mg/1 Ml) 0.1 mg IV Q2MIN PRN PRN Reason: Res Rate </= 8 or 02 SAT < 92% Ondansetron HCl (Zofran) 4 mg IV Q8H PRN PRN Reason: Nausea And Vomiting Oxycodone/Acetaminophen (Percocet 5/325) 1 tab PO Q6H PRN PRN Reason: Pain, Moderate (4-6) Last Admin: 11/20/17 01:10 Dose: 1 tab Sodium Chloride (Sodium Chloride Flush Syringe 10 Ml) 10 ml IV BID [facility] Last Admin: 11/20/17 09:33 Dose: 10 ml Sodium Chloride (Sodium Chloride Flush Syringe 10 Ml) 10 ml IV PRN PRN PRN Reason: LINE FLUSH Zonisamide (Zonegran (Nf)) 200 mg PO QHS [facility] Last Admin: 11/19/17 21:50 Dose: 200 mg Exam - Constitutional Vital Signs: Temp Pulse Resp BP Pulse Ox 98.6 F 80 20 130/63 98 11/20/17 13:52 11/20/17 13:52 11/20/17 13:52 11/20/17 13:52 11/20/17 13:52 - Labs CBC & Chem 7: 11/20/17 06:18 11/20/17 06:18 Lab Results: Laboratory Results - last 24 hr 11/20/17 11/20/17 06:18 06:18 WBC 5.9 RBC 4.05 Hgb 13.0 Hct 38.6 MCV 95 MCH 32 MCHC 34 RDW 13.6 Plt Count 345 Lymph % (Auto) 42.2 H [place] % (Auto) 8.4 H Eos % (Auto) 2.7 Baso % (Auto) 1.0 Lymph # 2.5 [place] # 0.5 Eos # 0.2 Baso # 0.1 Seg Neutrophils % 45.7 Seg Neutrophils # 2.7 Sodium 142 Potassium 3.9 Chloride 106.8 Carbon Dioxide 23 Anion Gap 16 BUN 13 Creatinine 0.6 L Estimated GFR > 60 BUN/Creatinine Ratio 22 Glucose 85 Calcium 8.8 Assessment and Plan - Patient 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 This may be a small GIST, but is not likely the cause of any symptoms. She may go home [facility] today and will have outpatient EGD. She is known to our practice and had a colonoscopy a few years ago.
[2017-11-20 13:58] VITALS: BP 130/63
--- NOTE | 2017-11-20 16:34 | Discharge Summary ---
Providers - Providers Date of Admission: 11/15/17 07:00 Date of discharge: 11/20/17 Attending physician: SAMANTHA LACKEY 11/18/17 14:30 Physical Therapy Evaluation and Treat [CONS] Routine Comment: Reason For Exam: debility/unsteady gait 11/19/17 15:50 Consult to Physician [CONS] Routine Comment: called office spoke to andrew/ daylin Consulting Provider: SEBLE REN Physician Instructions: Reason For Exam: Small gastrointestinal stromal tumor Primary care physician: PAYROLL ANALYST Hospitalization Condition: Stable Disposition: DC-01 TO HOME OR SELFCARE Time spent for discharge: 32 min Core Measure Documentation - Palliative Care Palliative Care/ Comfort Measures: Not Applicable - Core Measures Any of the following diagnoses?: none Exam - Constitutional Vitals: Temp Pulse Resp BP Pulse Ox 98.6 F 80 20 130/63 98 11/20/17 13:52 11/20/17 13:52 11/20/17 13:52 11/20/17 13:52 11/20/17 13:52 General appearance: Present: no acute distress, well-nourished - EENT Eyes: Present: PERRL, EOM intact - Neck Neck: Present: supple, normal ROM - Respiratory Respiratory effort: normal Respiratory: bilateral: diminished, negative: rales, rhonchi, wheezing - Cardiovascular Rhythm: regular Heart Sounds: Present: S1 & S2 - Extremities Extremities: no ischemia, No edema - Abdominal General gastrointestinal: Present: soft, non-tender, non-distended, normal bowel sounds - Integumentary Integumentary: Present: clear, warm - Musculoskeletal Musculoskeletal: strength equal bilaterally, generalized weakness - Psychiatric Psychiatric: appropriate mood/affect, cooperative - Neurologic Neurologic: CNII-XII intact, moves all extremities Plan Activity: advance as tolerated, fall precautions Diet: regular Additional Instructions: If you have intractable nausea vomiting abdominal pain , contact M.D. or go to emergency room Follow up with: TYRESE ESPITIA MD [Primary Care Provider] - 3-5 Days SEBLE REN MD [Staff Physician] - 7 Days Prescriptions: Losartan [Cozaar] 100 mg PO QDAY #30 tablet
== END 2017-11-20 17:23 | disposition home or self-care (01) | DRG 544 ==
LOC: ED 17:38 → 2B-ACE 11-15 07:00
PROVIDERS: ADMIT Internal Medicine; ATTEND Internal Medicine
PROC: 3E0234Z Introduction of Serum, Toxoid and Vaccine into Muscle, Percutaneous Approach (ICD-10-PCS; principal; 2017-11-16)
DX: C49.A2 Gastrointestinal stromal tumor of stomach (principal); I10 Essential (primary) hypertension; F31.9 Bipolar disorder, unspecified; G20 Parkinson's disease; F41.9 Anxiety disorder, unspecified; M19.90 Unspecified osteoarthritis, unspecified site; Z87.442 Personal history of urinary calculi; Z88.0 Allergy status to penicillin; Z79.899 Other long term (current) drug therapy; Z23 Encounter for immunization
CPT/HCPCS: 36415; 74177; 74183; 80048; 80053; 81001; 83690; 85025; 85610; 85730; 90732; A9577; G8978-GP; G8979-GP; J1650; J2060; J3246; Q9967